=== PATIENT | male | born 2000 | race Hispanic/Latino ===

== ENCOUNTER 2022-02-26 16:29 | Emergency (ER) | payer MEDICAID ==
[~2022-02-26] VITALS: Ht 165.1 cm; Wt 108.9 kg
[2022-02-26] MEDS ORDERED: PRED20TA3 PO (19:42)
[2022-02-26] MEDS ORDERED: PREDNISONE 20 MG TABLET ONE (19:50)
[2022-02-26 19:53] VITALS: BP 122/88
== END 2022-02-26 19:57 | disposition home or self-care (01) ==
LOC: EDH 16:29
DX: G51.0 Bell's palsy (principal); F43.10 Post-traumatic stress disorder, unspecified; F90.9 Attention-deficit hyperactivity disorder, unspecified type